=== PATIENT | female | born 1985 | race African-American/Black ===

== ENCOUNTER 2016-08-04 01:19 | Emergency (ER) | payer OTHER ==
[~2016-08-04] VITALS: Ht 170.2 cm; Wt 100.0 kg
[2016-08-04 01:28] VITALS: BP 159/108
== END 2016-08-04 02:47 | disposition left against medical advice (07) ==
LOC: ER 01:19
DX: Z53.21 Procedure and treatment not carried out due to patient leaving prior to being seen by health care provider (principal)